=== PATIENT | male | born 1935 | race Caucasian/White ===

== ENCOUNTER → 2019-10-18 | Outpatient (CLI) | payer MEDICARE ==
--- NOTE | 2019-10-18 14:50 | Diagnostic Imaging Report ---
INDICATION: Cough and congestion. TIME OF EXAM: 1:57 p.m. COMPARISON: No prior studies are available for comparison. FINDINGS: The heart size is normal. Right hemidiaphragm is elevated. No infiltrates are detected. No effusion or pneumothorax is seen. IMPRESSION: No acute cardiopulmonary process is detected. Dictated by: Dictated on workstation # [id number]
== END ==
LOC: RAD FS 13:54
PROVIDERS: ATTEND Internal Medicine
DX: J18.9 Pneumonia, unspecified organism (principal)
CPT/HCPCS: 71046

== ENCOUNTER → 2020-01-16 | Outpatient (CLI) | payer MEDICARE ==
--- NOTE | 2020-01-16 10:26 | Diagnostic Imaging Report ---
Clinical indication: Patient with chronic kidney disease stage III. Exam: Ultrasound of both kidneys. Comparison: None. Findings: Both kidneys are normal in size, shape, echogenicity and cortical thickness without hydronephrosis, stones, or focal lesions with the right and left kidneys measuring 9.4 cm and 9.0 cm in their craniocaudal dimensions, respectively. Prominent prostate gland is seen encroaching exophytically upon the base of the bladder and measures roughly 5.0 cm x 3.9 cm x 4.1 cm. There is a 1.2 cm in greatest dimension echogenic lobulated area with posterior shadowing within the left side of the bladder. Bladder is partially fluid-filled and slightly lobulated borders which may represent bladder wall thickening from incomplete distention or trabeculation. Impression: 1: There is a 1.2 cm echogenic area within the left side of the bladder with posterior shadowing which may represent a bladder stone. CT scan of the abdomen and pelvis would better evaluate. 2: There is enlargement of the prostate gland with exophytic protrusion into the base of bladder. There is diffuse bladder wall thickening with irregular casey which may be related to incomplete distention and/or bladder wall trabeculation. 3: Both kidneys are unremarkable with no hydronephrosis. Dictated by: Dictated on workstation # [id number]
== END ==
LOC: RAD 09:35
PROVIDERS: ATTEND Internal Medicine Nephrology
DX: I12.9 Hypertensive chronic kidney disease with stage 1 through stage 4 chronic kidney disease, or unspecified chronic kidney disease (principal); N18.3 Chronic kidney disease, stage 3 (moderate); I25.10 Atherosclerotic heart disease of native coronary artery without angina pectoris; N40.0 Benign prostatic hyperplasia without lower urinary tract symptoms; Z79.1 Long term (current) use of non-steroidal anti-inflammatories (NSAID)
CPT/HCPCS: 76770

== ENCOUNTER → 2020-02-02 | Outpatient (CLI) | payer MEDICARE ==
--- NOTE | 2020-02-02 10:00 | Diagnostic Imaging Report ---
EXAMINATION: CT Abdomen Pelvis without contrast. TECHNIQUE: Multiple contiguous axial images were obtained through the abdomen and pelvis without the use of intravenous contrast. All CT scans use one or more of the following dose optimizing techniques: automated exposure control, MA and/or KvP adjustment based on a patient size and exam type, or iterative reconstruction. HISTORY: Benign prostatic hypertrophy, difficulty urinating. COMPARISON: None available. FINDINGS: Limited views of the lower thorax show mild atelectasis. 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 There are numerous cysts throughout the liver. No suspicious liver lesions are seen. There is no biliary ductal dilation. Gallbladder is normal. Pancreas is normal. Spleen is normal. Adrenal glands are normal. Kidneys are mildly atrophic. No suspicious renal lesions are seen. There is no hydronephrosis. Prostate is enlarged with hypertrophy of the median lobe. There is thickening of the urinary bladder, particularly along the posterior wall. There is an 8 mm stone in the urinary bladder. Visualized bowel is normal in caliber without obstruction or inflammation. There is extensive diverticulosis without diverticulitis. No free fluid or air. No abdominal or pelvic lymphadenopathy. Aorta is normal in caliber without aneurysm. There are no suspicious osseus lesions. There has been instrumented spinal fusion. The right L4 pedicle screw does not enter the pedicle and is within the psoas muscle. Similarly, the right L5 pedicle screw transverses the transverse process and the majority is in the retroperitoneum. IMPRESSION: 1. Enlarged prostate with hypertrophy of the medial lobe and thickening of the urinary bladder which contains an 8 mm stone. Findings consistent with chronic outlet obstruction. Evaluation for underlying bladder wall lesion is limited without contrast. Dictated by: Dictated on workstation # [id number]
== END ==
LOC: RAD FS 09:20
PROVIDERS: ATTEND Internal Medicine Nephrology
DX: N40.0 Benign prostatic hyperplasia without lower urinary tract symptoms (principal); N21.0 Calculus in bladder
CPT/HCPCS: 74176

== ENCOUNTER → 2020-05-10 | Outpatient (CLI) | payer MEDICARE | LOC: LAB FS 08:30 | PROVIDERS: ATTEND Urology | DX: N40.1 Benign prostatic hyperplasia with lower urinary tract symptoms (principal); R97.20 Elevated prostate specific antigen [PSA] | CPT/HCPCS: 36415; 84153 ==

== ENCOUNTER → 2020-11-15 | Outpatient (CLI) | payer MEDICARE | LOC: LAB FS 08:49 | PROVIDERS: ATTEND Urology | DX: N40.0 Benign prostatic hyperplasia without lower urinary tract symptoms (principal); R97.20 Elevated prostate specific antigen [PSA] | CPT/HCPCS: 36415; 84153 ==